=== PATIENT | female | born 1935 | race Caucasian/White ===

== ENCOUNTER 2019-03-29 00:43 | Outpatient (CLI) | payer MEDICARE ==
[~2019-03-29 00:43] MED LIST: ACET-1008 PO; ASPI-611 PO
== END 2019-03-29 23:59 | disposition home or self-care (01) ==
LOC: RT 00:43
PROVIDERS: ATTEND Internal Medicine Pulmonary Disease
DX: J44.9 Chronic obstructive pulmonary disease, unspecified (principal)
CPT/HCPCS: 94618